=== PATIENT | female | born 1950 | race Two or more races ===

== ENCOUNTER 2021-07-12 09:51 | Outpatient (CLI) | payer OTHER | END 2021-07-12 09:53 | disposition home or self-care (01) | LOC: LAB 09:51 | PROVIDERS: ATTEND Specialist | DX: J30.89 Other allergic rhinitis (principal) ==

== ENCOUNTER → 2021-07-12 | Outpatient (CLI) | payer OTHER | END | disposition home or self-care (01) | LOC: RAD 10:41 | PROVIDERS: ATTEND Specialist | DX: J01.81 Other acute recurrent sinusitis (principal); R05.3 Chronic cough; K21.9 Gastro-esophageal reflux disease without esophagitis ==

== ENCOUNTER 2021-07-24 09:54 | Outpatient (CLI) | payer OTHER | END 2021-07-24 09:56 | disposition home or self-care (01) | LOC: RX STUDY 09:54 | PROVIDERS: ATTEND Specialist | DX: K22.89 Other specified disease of esophagus (principal); N21.8 Other lower urinary tract calculus ==